=== PATIENT | female | born 1930 | race Hispanic/Latino ===

== ENCOUNTER 2016-11-26 11:23 | Emergency (ER) | payer MEDICARE, OTHER ==
[2016-11-26 11:23] VITALS: BMI 22.2
[2016-11-26 11:28] VITALS: TEMP 97.8
[2016-11-26 12:33] LABS: BASO % 0.3 % (0.0-2.0); EOS # 0.1 K/uL (0.0-0.7); HEMATOCRIT 34.9 % (34.0-47.0); LYMPH # 1.8 K/uL (1.0-4.3); LYMPH % 24.6 % (20.0-40.0); MEAN CELL VOLUME 94.9 fL (81.0-99.0); MEAN CORPUSCULAR HEMOGLOBIN 31.4 pg (27.0-31.0); MEAN CORPUSCULAR HGB CONC 33.1 g/dL (33.0-37.0); MEAN PLATELET VOLUME 7.5 fL (7.2-11.7); MONO # 0.6 K/uL (0.0-0.8); MONO % 8.2 % (0.0-10.0); NRBC % 0.1 % (0.0-2.0); RED CELL DISTRIBUTION WIDTH 14.5 % (11.5-14.5); WHITE BLOOD COUNT 7.3 K/uL (4.8-10.8)
[2016-11-26 12:36] LABS: CHLORIDE 102 mmol/L (98-107); POTASSIUM 4.7 mmol/L (3.6-5.2); SODIUM 139 mmol/L (132-148)
[2016-11-26 12:38] LABS: BILIRUBIN,TOTAL 0.8 mg/dL (0.2-1.3); GFR AFRICAN-AMERICAN > 60
[2016-11-26 12:39] LABS: ALB/GLOB RATIO 1.4 (1.0-2.1); ALKALINE PHOSPHATASE 99 U/L (38-126); ALT/SGPT 18 U/L (9-52); AST/SGOT 36 U/L (14-36); BLOOD UREA NITROGEN 12 mg/dL (7-17); CARBON DIOXIDE 25 mmol/L (22-30); GLUCOSE,RANDOM 104 mg/dL (65-105); TOTAL PROTEIN 8.1 g/dL (6.3-8.3)
[2016-11-26 12:40] LABS: CALCIUM 8.7 mg/dl (8.6-10.4)
[2016-11-26 12:43] VITALS: BP 168/49; PULSE 48; RESP 16; O2SAT 100
[2016-11-26 12:50] LABS: INR 9.9
[2016-11-26] MEDS ORDERED: Phytonadione 10 mg/ml Inj (Adult) IV STA (13:11)
[2016-11-26] MEDS ORDERED: Phytonadione 10 mg/ml Inj (Adult) ONE (13:31)
--- NOTE | 2016-11-26 13:49 | C.PDOC ---
History Of Present Illness Patient is a 86 y/o female, whose PMHx include Afib, is sent to the ED by PMD for elevated INR up to 12.7. Pt states she is currently taking Coumadin 5mg for Afib. Pt had routine blood work that showed INR of 12.73, and was referred to the ER by her PMD. Pt also complains of ecchymosis to her legs, and forearms. Pt states she also had an episode of nose bleed from the right nostril today that stopped spontaneously. Notes that she did not take her Coumadin last night. On arrival, pt denies any other physical complaints, injury , extremity weakness, numbness, lightheadedness, dizziness, fever, chest pain, shortness of breath, or any other associated symptoms at this time. Chief Complaint (Nursing): Abnormal Labs History Per: Patient History/Exam Limitations: no limitations Onset/Duration Of Symptoms: Gradual Current Symptoms Are (Timing): Still Present Reports Recently: Treated By A Physician Recent travel outside of the [place]: No Additional History Per: Patient Past Medical History Reviewed: Historical Data, Nursing Documentation, Vital Signs Vital Signs: Last Vital Signs Temp 97.8 F 11/26/16 11:26 Pulse 48 L 11/26/16 12:39 Resp 16 11/26/16 12:39 BP 168/49 H 11/26/16 12:39 Pulse Ox 100 11/26/16 17:58 - Medical History PMH: Anxiety, Asthma, Atrial Fibrillation, Cardia Arrhythmia (Afib), Fractures, Gastrointestinal Ulcer, HTN, Hypercholesterolemia Denies: Depression, Chronic Kidney Disease - [facility] Procedures COLONOSCOPY (03/15/05) ESOPHAGOGASTRODUODENOSCOPY [EGD] W/CLOSED BIOPSY (03/15/05) RELEASE RIGHT HIP TENDON, OPEN APPROACH (05/05/16) REPLACE R HIP JT W CERAMIC ON POLY, UNCEMENT, OPEN (05/05/16) REPOSITION RIGHT FEMORAL SHAFT WITH INT FIX, OPEN APPROACH (05/05/16) SUPPLEMENT RIGHT LOWER FEMUR WITH AUTOL SUB, OPEN APPROACH (05/05/16) TRANSFUSE NONAUT FROZEN PLASMA IN PERIPH VEIN, PERC (05/05/16) TRANSFUSE NONAUT RED BLOOD CELLS IN PERIPH VEIN, PERC (05/05/16) Family History: States: Unknown Family Hx - Social History Hx Tobacco Use: No Hx Alcohol Use: No Hx Substance Use: No - Immunization History Hx Tetanus Toxoid Vaccination: No Hx Influenza Vaccination: No Hx Pneumococcal Vaccination: No Review Of Systems Except As Marked, All Systems Reviewed And Found Negative. Constitutional: Negative for: Fever, Chills Cardiovascular: Negative for: Chest Pain, Palpitations, Light Headedness Respiratory: Negative for: Cough, Shortness of Breath Gastrointestinal: Negative for: Nausea, Vomiting, Abdominal Pain Skin: Positive for: Other (ecchymosis to legs, forearms) Neurological: Negative for: Weakness, Numbness, Headache, Dizziness Physical Exam - Physical Exam Appears: Non-toxic, No Acute Distress Skin: Warm, Dry, Ecchymosis (multiple diffuse ecchymosis to bilateral wrists, and lower legs) Head: Atraumatic, Normacephalic Eye(s): bilateral: Normal Inspection, EOMI Nose: Normal Neck: Normal ROM, Supple Chest: Symmetrical, No Tenderness Cardiovascular: Rhythm Irregular (Irregularly irregular) Respiratory: Normal Breath Sounds, No Rales, No Rhonchi, No Wheezing Gastrointestinal/Abdominal: Soft, No Tenderness Extremity: Normal ROM, No Tenderness, Capillary Refill (< 2 sec.), No Deformity Pulses: Left Radial: Normal, Right Radial: Normal, Left Dorsalis Pedis: Normal, Right Dorsalis Pedis: Normal Neurological/Psych: Oriented x3, Normal Speech, Normal Cognition, Normal Motor, Normal Sensation ED Course And Treatment - Laboratory Results Result Diagrams: 11/26/16 12:23 11/26/16 12:23 O2 Sat by Pulse Oximetry: 100 (on RA) Pulse Ox Interpretation: Normal Progress Note: Labs ordered and reviewed. INR level was 9.9 in the ER, and was treated with Vitamin K 10mg IV. Case discussed with PMD Dr. Harris who agrees to plan and discharge pt home. Dr. Harris requested pt to stop Coumadin, and to follow up with her on 11/29/16. Dr. Harris also requested to cancel patient' s endoscopy appointment on 11/30/16. Disposition - Disposition Disposition: HOME/ ROUTINE Disposition Time: 14:54 Condition: STABLE Additional Instructions: Folow up with PMD on Tuesday morning, November 29, 2016. Cancel your endoscopy appointment on Wednesday, November 30, 2016. DO NOT TAKE WARFARIN until you see Dr.Katsman. Return to ED immediately if feel worse. Instructions: Warfarin (By mouth), Vitamin K in Foods (ED) - Clinical Impression Clinical Impression: Warfarin-induced coagulopathy - PA / HOLE FILLER / Resident Statement MD/DO has reviewed & agrees with the documentation as recorded. - Scribe Statement The provider has reviewed the documentation as recorded by the Ruy Vega All medical record entries made by the Ruy were at my direction and personally dictated by me. I have reviewed the chart and agree that the record accurately reflects my personal performance of the history, physical exam, medical decision making, and the department course for this patient. I have also personally directed, reviewed, and agree with the discharge instructions and disposition.
--- NOTE | 2016-11-26 13:50 | C.PDOC ---
Chief Complaint (Nursing): Abnormal Labs Past Medical History Vital Signs: Last Vital Signs Temp 97.8 F 11/26/16 11:26 Pulse 48 L 11/26/16 12:39 Resp 16 11/26/16 12:39 BP 168/49 H 11/26/16 12:39 Pulse Ox 100 11/26/16 12:39 - Medical History PMH: Anxiety, Asthma, Atrial Fibrillation, Cardia Arrhythmia (Afib), Fractures, Gastrointestinal Ulcer, HTN, Hypercholesterolemia Denies: Depression, Chronic Kidney Disease - [facility] Procedures COLONOSCOPY (03/15/05) ESOPHAGOGASTRODUODENOSCOPY [EGD] W/CLOSED BIOPSY (03/15/05) RELEASE RIGHT HIP TENDON, OPEN APPROACH (05/05/16) REPLACE R HIP JT W CERAMIC ON POLY, UNCEMENT, OPEN (05/05/16) REPOSITION RIGHT FEMORAL SHAFT WITH INT FIX, OPEN APPROACH (05/05/16) SUPPLEMENT RIGHT LOWER FEMUR WITH AUTOL SUB, OPEN APPROACH (05/05/16) TRANSFUSE NONAUT FROZEN PLASMA IN PERIPH VEIN, PERC (05/05/16) TRANSFUSE NONAUT RED BLOOD CELLS IN PERIPH VEIN, PERC (05/05/16) Family History: States: Unknown Family Hx - Social History Hx Tobacco Use: No Hx Alcohol Use: No Hx Substance Use: No - Immunization History Hx Tetanus Toxoid Vaccination: No Hx Influenza Vaccination: No Hx Pneumococcal Vaccination: No ED Course And Treatment - Laboratory Results Result Diagrams: 11/26/16 12:23 11/26/16 12:23 O2 Sat by Pulse Oximetry: 100 Disposition - Disposition Disposition: HOME/ ROUTINE Disposition Time: 13:48 Condition: STABLE Additional Instructions: Folow up with PMD on Tuesday, November 29, 2016. Cancel your endoscopy appointment on Wednesday, November 30, 2016. DO NOT TAKE WARFARIN until you see . Return to ED immediately if feel worse. Instructions: Warfarin (By mouth), Vitamin K in Foods (ED) - Clinical Impression Clinical Impression: Warfarin-induced coagulopathy
== END 2016-11-26 14:20 | disposition home or self-care (01) ==
LOC: C.ER 11:23
DX: D68.8 Other specified coagulation defects (principal)
CPT/HCPCS: 80053; 85025; 85610; 85730; 96374; 99285; J3430